=== PATIENT | female | born 1960 | race Caucasian/White ===

== ENCOUNTER 2022-11-25 11:42 | Outpatient (CLI) | payer OTHER, SELFPAY | END 2022-11-25 11:43 | disposition home or self-care (01) | PROVIDERS: PCP Family Medicine; Visit Provider Family Medicine | DX: I10 Essential (primary) hypertension (principal); J20.9 Acute bronchitis, unspecified; Z20.822 Contact with and (suspected) exposure to COVID-19 | CPT/HCPCS: 80053; 86769 ==

== ENCOUNTER 2023-06-06 14:23 | Outpatient (CLI) | payer OTHER, SELFPAY | END 2023-06-06 14:24 | disposition home or self-care (01) | PROVIDERS: PCP Family Medicine; Visit Provider Family Medicine | DX: R53.83 Other fatigue (principal) | CPT/HCPCS: 80053; 84443 ==

== ENCOUNTER 2023-10-10 13:52 | Outpatient (CLI) | payer OTHER, SELFPAY | END 2023-10-10 13:53 | disposition home or self-care (01) | LOC: FRMREF 13:55 | PROVIDERS: PCP Family Medicine; Visit Provider Physician Assistant Medical | DX: R19.7 Diarrhea, unspecified (principal) | CPT/HCPCS: 80053; 87493; 87505 ==

== ENCOUNTER 2024-01-30 16:08 | Outpatient (CLI) | payer OTHER, SELFPAY ==
[2024-02-10 01:43] LABS: HPV Source Endocervical; HPV, High Risk by TMA Not Detected
== END 2024-01-30 16:09 | disposition home or self-care (01) ==
PROVIDERS: PCP Family Medicine; Visit Provider Family Medicine
DX: Z12.4 Encounter for screening for malignant neoplasm of cervix (principal)
CPT/HCPCS: 87624; 87625; 88141; 88142

== ENCOUNTER 2024-01-31 15:30 | Outpatient (RCR) | payer OTHER, SELFPAY ==
--- NOTE | 2023-12-21 16:16 | PT.OPE ---
[facility] PT [facility] Out[facility] Eval Start: 12/21/23 13:51 Freq: Status: Active Protocol: Document 12/21/23 16:14 CJT (Rec: 12/21/23 16:16 CJT [id number]) E-signed By Ángel Ibanez PT Physical Therapy Outpatient Evaluation Insurance Information Recert Due Date 03/20/24 Insurance Name [facility] Medical Diagnosis R knee pain Other symptoms and signs involving the musculoskeletal system Treating Diagnosis R hip pain Referring Cristiane Rascon MD Subjective Preferred Name Ivanna Subjective Pt presents for evaluation of R knee pain and R leg weakness . Pt clarifies and notes that her knee is not the problem, it is pain in her R hip and inner thigh on R. This is made worse while she is having intercourse with her . Pt reports struggling to get on her 4-tanner. Describes having to swing her L leg over her 4-tanner instead of her R due to pain and tightness in her groin. When she was swimming in a [place] about 3 weeks ago, she noted difficulty moving her R LE in a circular motion. Pt notes she was laying prone on a lounging skye in the water. Pt notes that she limps more in the AM and gait gets better throughout the dog. She is a side sleeper. R groin pain keeps her up at night occasionally. Aspercream helps . Date of Last Physician Visit 12/19/23 Occupation Operates [employer] Precautions Therapy Limitations/Systems Review Not Limited Objective Other/Pertinent Objective R Hip ROM Flexion - 120 IR/ER - 25/20 Extension - 10 L Hip ROM Flexion - 120 IR/ER - 25/38 Extension - 10 R knee ROM - WNL L knee ROM - WNL R Hip Strength Flexion - 4/5 MMT Abduction - 3+/5 MMT Adduction - 5/5 MMT IR - 5/5 MMT ER - 4/5 MMT *limited by pain in R lateral knee Extension - 4/5 MMT L Hip Strength Flexion - 4/5 MMT Abduction - 3+/5 MMT Adduction - 5/5 MMT IR - 4+/5 MMT ER - 4+/5 MMT Extension - 4/5 MMT R knee Extension - 5/5 MMT R Knee Flexion - 5/5 MMT L knee Extension - 5/5 MMT L knee Flexion - 5/5 MMT R ankle DF - 5/5 MMT L ankle DF - 5/5 MMT Palpation: pt reports pain/ tenderness with palpation to R adductor bundle, glute med Gait: antalgic gait on R Special Testing Slump: negative SLR: negative FADIR: Positive R for pain AUGUSTO: positive for pain and lack of ROM on R Tessie's: positive R Piriformis: negative Hamstring: positive B Pelvis: level Assessment Assessment/Impression Ivanna is a very pleasant 63 year old female who presents to our clinic for evaluation and treatment of R hip and R LE weakness. Pt presents with deficits in B LE strength and ROM (see objective). 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 She will benefit from consistent performance of strengthening exercises as well as gentle stretching to reduce muscle spasms in R adductor bundle. The nature of the pts condition was explained and all questions were answered to the pts satisfaction. Skilled PT services are medically necessary to address deficits and return patient to highest level of function. Recommend physical therapy sessions 1-2/ week for 4-8 weeks. Pt agrees with this plan. Printout of HEP was given for I completion and pt gives verbal understanding of each exercise . Primary Functional Limitations Walking, stairs, swimming, intercourse Plan of Care Rehabilitation Potential Good Physical Therapy Goals STG - To be completed in 2-3 weeks: 1. Pt will report reduction in R hip pain by factor of 2 so that she may go for walks in the morning with manageable level of pain. LTG - To be completed in 4-8 weeks: 1. Pt to be I with HEP so that she may I manage progression of symptoms. 2. Pt will report ability to have intercourse with her without adductor bundle pain. 3. Pt will demo at least 4+/5 MMT for all hip motions B to provide greater strength to hips and pelvis with activity. Treatment Plan/Direct Interventions Electrical Stimulation,Heat, Joint Mobilization,Manual Therapy,Neuromuscular Re-ed, Self-Care/Home Management, Therapeutic Activities, Therapeutic Exercises Frequency/Duration 1-2/week for 4-8 weeks Patient Will Be Discharged From Therapy Completion of LTG(s),Skills Plateau,Independent w/HEP, Independently Progressing Evaluation Billing Untimed Code Treatment Minutes 40 PT Eval No Charge No Complexity Low Certification Information Initial Certification Date 12/21/23 Ending Certification Date 03/20/24 Provider Signature Required Yes Provider Signature Shows Agreement With POC & Medical Necessity Physician NPI Number Write NPI# Here Physician Comment/Change : Physician Signature & Date Requested Please Sign/Date Here
== END 2024-05-16 15:56 | disposition home or self-care (01) ==
PROVIDERS: PCP Family Medicine; Visit Provider Family Medicine
DX: M25.561 Pain in right knee (principal); R29.898 Other symptoms and signs involving the musculoskeletal system; M25.551 Pain in right hip; Z51.89 Encounter for other specified aftercare
CPT/HCPCS: 97110; 97140; 97161

== ENCOUNTER 2024-03-06 16:39 | Outpatient (CLI) | payer OTHER, SELFPAY ==
--- NOTE | 2024-03-06 16:40 | CRLHL7_ITS ---
For Patients: As a result of the Century Cures Act, medical imaging exams and procedure reports are released immediately into your electronic medical record. You may view this report before your referring provider. If you have questions, please contact your health care provider. BILATERAL SCREENING MAMMOGRAM WITH COMPUTER-AIDED DETECTION AND TOMOSYNTHESIS TECHNIQUE: CC and MLO views were obtained. These mammographic images have been obtained using full-field digital technique. These mammographic images were interpreted with the benefit of computer-aided detection. Breast Tomosynthesis was used in this interpretation. COMPARISON FILM: No previous available. FINDINGS: There are scattered areas of fibroglandular density. IMPRESSION: There is no radiographic evidence for malignancy. ASSESSMENT: BI-RADS Category 2: Benign RECOMMENDATION: Routine screening mammogram in 1 year. A lay language report of this examination will be provided to the patient. Fabian Keating M.D. Diagnostic Radiologist [email or web address] SP/Dictated by: Fabian Keating MD @ 03/19/2024 9:30:00 AM (Electronically Signed)
== END 2024-03-06 16:40 | disposition home or self-care (01) ==
LOC: MAMMO 16:39
PROVIDERS: PCP Family Medicine; Visit Provider Family Medicine
DX: Z12.31 Encounter for screening mammogram for malignant neoplasm of breast (principal)
CPT/HCPCS: 77063; 77067

== ENCOUNTER 2025-02-05 15:12 | Outpatient (CLI) | payer OTHER, SELFPAY | END 2025-02-05 15:13 | disposition home or self-care (01) | PROVIDERS: PCP Family Medicine; Visit Provider Family Medicine | DX: I10 Essential (primary) hypertension (principal); Z11.59 Encounter for screening for other viral diseases | CPT/HCPCS: 80053; 80061; 82043; 82570; 86803 ==